=== PATIENT | female | born 1955 | race Caucasian/White ===

== ENCOUNTER 2016-09-07 13:23 | Outpatient (CLI) | payer BC | END 2016-09-07 13:24 | disposition home or self-care (01) | LOC: LABLEX 13:23 | PROVIDERS: ATTEND Family Medicine | DX: N39.0 Urinary tract infection, site not specified (principal) | CPT/HCPCS: 87086 ==

== ENCOUNTER 2017-05-09 10:16 | Outpatient (CLI) | payer BC ==
[2017-05-09 16:16] LABS: #Basophils 0.1 thou/uL (0.0-0.2); #Eosinphils 0.1 thou/uL (0.0-0.7); #Lymphocytes 1.8 thou/uL (1.20-3.40); #Monocytes 0.7 thou/uL (0.11-0.59); #Neutrophils 5.3 thou/uL (1.40-6.50); %Basophils 1.6 % (0.0-1.0); %Eosinophils 1.7 % (0.0-10.0); %Lymphocytes 22.1 % (21.0-51.0); %Monocytes 8.2 % (0.0-10.0); %Neutrophils 66.4 % (42.0-75.0); Hemoglobin 14.4 g/dL (12.0-16.0); Mean Corpuscular HGB CONC 34.5 g/dL (32.0-36.0); Mean Corpuscular Hemoglobin 31.9 pg (27.0-31.0); Mean Corpuscular Volume 92.4 fl (81.0-99.0); Mean Platelet Volume 8.1 fL (7.4-10.4); Platelet Count 251 thou/uL (130-400); RBC Distribution Width 11.1 % (11.5-14.5); Red Blood Cell (RBC) Count 4.51 mill/uL (4.20-5.40); White Blood Cell (WBC) Count 7.9 thou/uL (4.8-10.8)
[2017-05-09 16:42] LABS: ALT (SGPT) 28 U/L (8-55); AST (SGOT) 23 U/L (5-34); Albumin 4.3 g/dL (3.4-4.8); Alkaline Phosphatase 59 U/L (40-150); Anion Gap 14 mmol/L (10-20); BUN (Urea Nitrogen) 10 mg/dL (9.8-20.1); Bilirubin, Total 1.5 mg/dL (0.2-1.2); Calc. Creatinine Clearance 0 mL/min (70-130); Calcium 9.6 mg/dL (7.8-10.44); Carbon Dioxide 26 mmol/L (23-31); Cardiac Risk 3.2 (Less than 4.5); Chloride 103 mmol/L (98-107); Cholesterol 232 mg/dl (< 200 Desired); Estimated GFR-MDRD 81; Globulin 2.6 g/dL (2.4-3.5); Glucose 88 mg/dL (80-115); HDL Cholesterol 73 mg/dL (>60 Neg Risk); LDL Cholesterol, Calculated 129 mg/dL; Potassium 4.7 mmol/L (3.5-5.1); Protein, Total 6.9 g/dL (6.0-8.3); Sodium 138 mmol/L (136-145); Triglycerides 148 mg/dL (Less than 150)
== END 2017-05-09 10:17 | disposition home or self-care (01) ==
LOC: LABLEX 10:16
PROVIDERS: ATTEND Nurse Practitioner
DX: E78.2 Mixed hyperlipidemia (principal)
CPT/HCPCS: 80053; 80061; 85025

== ENCOUNTER 2019-12-29 15:08 | Emergency (ER) | payer MEDICARE, BC ==
[2019-12-29] MEDS ORDERED: Ondansetron PF 4 MG/2 ML Vial ONE (15:36)
[2019-12-29] MEDS ORDERED: Fentanyl 100 MCG/2 ML VIAL ONE ×2 (15:36→16:35)
[2019-12-29 15:54] LABS: #Basophils 0.1 thou/uL (0.0-0.2); #Eosinphils 0.2 thou/uL (0.0-0.7); #Lymphocytes 3.2 thou/uL (1.20-3.40); #Neutrophils 14.3 thou/uL (1.40-6.50); %Basophils 0.7 % (0.0-1.0); %Eosinophils 0.8 % (0.0-10.0); %Lymphocytes 16.9 % (21.0-51.0); %Monocytes 5.4 % (0.0-10.0); %Neutrophils 76.2 % (42.0-75.0); Hemoglobin 12.8 g/dL (12.0-16.0); Mean Corpuscular HGB CONC 31.1 g/dL (32.0-36.0); Mean Corpuscular Hemoglobin 28.7 pg (27.0-31.0); Mean Corpuscular Volume 92.4 fL (78.0-98.0); Mean Platelet Volume 6.7 fL (7.4-10.4); Platelet Count 285 thou/uL (130-400); RBC Distribution Width 13.1 % (11.5-14.5); Red Blood Cell (RBC) Count 4.46 mill/uL (4.20-5.40); White Blood Cell (WBC) Count 18.8 thou/uL (4.8-10.8)
[2019-12-29] MEDS ORDERED: cefTRIAXone\\ROCEPHIN 2 GM VIAL ONE (15:57)
[2019-12-29] MEDS ORDERED: Sodium Chloride 0.9% 100 ML ONE (15:57)
[2019-12-29 16:10] LABS: ALT (SGPT) 9 U/L (8-55); AST (SGOT) 12 U/L (5-34); Albumin 4.5 g/dL (3.4-4.8); Alkaline Phosphatase 84 U/L (40-110); Anion Gap 15 mmol/L (10-20); BUN (Urea Nitrogen) 12 mg/dL (9.8-20.1); Bilirubin, Total 0.6 mg/dL (0.2-1.2); Calc. Creatinine Clearance 0 mL/min (70-130); Calcium 9.2 mg/dL (7.8-10.44); Carbon Dioxide 24 mmol/L (23-31); Chloride 103 mmol/L (98-107); Estimated GFR-MDRD 73; Globulin 2.9 g/dL (2.4-3.5); Glucose 118 mg/dL (80-115); Potassium 3.5 mmol/L (3.5-5.1); Protein, Total 7.4 g/dL (6.0-8.3); Sodium 138 mmol/L (136-145)
[2019-12-29] MEDS ORDERED: Ketorolac Tromethamine 30 MG/ML VIAL ONE (16:35)
[2019-12-29 17:26] LABS: Bilirubin Negative (Negative); Blood, Urine Small (Negative); Clarity Clear (Clear); Glucose, Urine (Dipstick) Negative (Negative); Leukocyte Negative (Negative); Nitrite Negative (Negative); Protein, Urine (Dipstick) Negative (Neg-Trace); Urobilinogen 0.2 mg/dL (Less than 2)
[2019-12-29 17:34] LABS: Bacteria/HPF 1+ HPF (None Seen); Broad Cast None Seen LPF (None Seen); Calcium Oxalate Crystals None Seen HPF (None Seen); Cellular Cast None Seen LPF (None Seen); Epithelial Cast None Seen LPF (None Seen); Fatty Cast None Seen LPF (None Seen); Mucous/LPF None Seen LPF (<2+); Other Casts None Seen LPF (None Seen); Oval Fat Bodies/HPF None Seen HPF (None Seen); RBC/HPF 0-3 HPF (0-3); Red Blood Cell Cast None Seen LPF (None Seen); Renal Epithelial None Seen HPF (None Seen); Sperm/HPF None Seen HPF (None Seen); Squamous Epithelial 0-3 HPF (0-3); Transitional Epithelial None Seen HPF (None Seen); Trichomonas/HPF None Seen HPF (None Seen); Triple Phosphate Crystal None Seen HPF (None Seen); Unclassified Crystals None Seen HPF (None Seen); WBC/HPF 0-3 HPF (0-3); Waxy Cast None Seen LPF (None Seen); White Blood Cell Cast None Seen LPF (None Seen); Yeast-Budding None Seen HPF (None Seen); Yeast-Hyphae None Seen HPF (None Seen)
--- NOTE | 2019-12-29 20:32 | RAD ---
LEFT KNEE FOUR VIEWS: Date: 12-29-2019 FINDINGS: A total knee arthroplasty is in place. There is a normal post-operative appearance with no sign of lo osening or infection. Some soft tissue swelling around the placement is to expected, given the somewh at recent surgery. IMPRESSION: No acute bony finding. POS: HOME
== END 2019-12-29 17:05 | disposition short-term general hospital (02) ==
LOC: BURERS 15:08
DX: T84.54XA Infection and inflammatory reaction due to internal left knee prosthesis, initial encounter (principal); Z79.899 Other long term (current) drug therapy; Z96.651 Presence of right artificial knee joint
CPT/HCPCS: 80053; 81003; 81015; 83605; 85025; 87040; 96365; 96367; 96375; 96376; J0696; J1885; J2405; J3010; J3370; J3490

== ENCOUNTER 2021-08-17 19:35 | Emergency (ER) | payer MEDICARE, BC ==
[2021-08-18 15:20] LABS: SARS-CoV-2 PCR by NAA DETECTED (NotDetected)
== END 2021-08-17 22:23 | disposition home or self-care (01) ==
LOC: BURERS 19:35
DX: U07.1 COVID-19 (principal)
CPT/HCPCS: 71046; 87804 ×2; 99283; U0003; U0005

== ENCOUNTER 2021-08-26 14:40 | Emergency (ER) | payer MEDICARE, BC | END 2021-08-26 15:35 | disposition home or self-care (01) | LOC: BURERS 14:40 | DX: S80.02XA Contusion of left knee, initial encounter (principal); W01.0XXA Fall on same level from slipping, tripping and stumbling without subsequent striking against object, initial encounter; Z86.16 Personal history of COVID-19 ==

== ENCOUNTER 2021-08-31 15:41 | Emergency (ER) | payer MEDICARE, BC | END 2021-08-31 16:58 | disposition home or self-care (01) | LOC: BURERS 15:41 | DX: S80.02XA Contusion of left knee, initial encounter (principal); Z86.16 Personal history of COVID-19; W19.XXXA Unspecified fall, initial encounter ==

== ENCOUNTER 2024-02-08 06:41 | Emergency (ER) | payer MEDICARE, BC, OTHER ==
[2024-02-08] MEDS ORDERED: HYDROcodone/Acetaminophen 5/325 mg Tablet ONE (07:47)
[2024-02-08] MEDS ORDERED: Acetaminophen 500 MG TAB ONE (07:55)
== END 2024-02-08 08:47 | disposition home or self-care (01) ==
LOC: BURERS 06:41
DX: S02.2XXA Fracture of nasal bones, initial encounter for closed fracture (principal); I10 Essential (primary) hypertension; W01.10XA Fall on same level from slipping, tripping and stumbling with subsequent striking against unspecified object, initial encounter
CPT/HCPCS: 70450; 70486; 72125

== ENCOUNTER 2024-02-09 11:06 | Emergency (ER) | payer MEDICARE, BC, OTHER ==
[~2024-02-09 11:06] MED LIST: Iopamidol 370 76% 100 ML VIAL ONE
[2024-02-09 11:42] LABS: INR-International Normal Ratio 0.9; Prothrombin Time 12.4 sec (12.0-14.7)
[2024-02-09 11:51] LABS: ALT (SGPT) 15 U/L (8-55); AST (SGOT) 12 U/L (5-34); Alkaline Phosphatase 64 U/L (40-110); Anion Gap 14 mmol/L (10-20); BUN (Urea Nitrogen) 27 mg/dL (9.8-20.1); Bilirubin, Total 0.5 mg/dL (0.2-1.2); Calc. Creatinine Clearance 0 mL/min (70-130); Carbon Dioxide 25 mmol/L (23-31); Chloride 102 mmol/L (98-107); Estimated GFR 86; Globulin 2.4 g/dL (2.4-3.5); Glucose 130 mg/dL (80-115); Potassium 3.8 mmol/L (3.5-5.1); Protein, Total 6.4 g/dL (5.8-8.1); Sodium 137 mmol/L (136-145)
[2024-02-09 11:53] LABS: Band 1 % (5-11); Eosinophils 1 % (0-10); Hematocrit 34.6 % (36.0-47.0); Hemoglobin 11.3 g/dL (12.0-16.0); Lymphocytes 34 % (21-51); MDiff Complete? YES; Mean Corpuscular HGB CONC 32.7 g/dL (32.0-36.0); Mean Corpuscular Hemoglobin 28.8 pg (27.0-31.0); Mean Corpuscular Volume 88.1 fl (78.0-98.0); Mean Platelet Volume 7.8 fL (7.4-10.4); Monocytes 4 % (0-10); Neutrophil 59 % (42-75); Platelet Count 227 10x3/uL (130-400); RBC Distribution Width 12.3 % (11.5-14.5); Red Blood Cell (RBC) Count 3.92 mill/uL (4.20-5.40); White Blood Cell (WBC) Count 32.1 10x3/uL (4.8-10.8)
[2024-02-09] MEDS ORDERED: Tranexamic Acid 1,000 MG/10 ML VIAL ONE (11:55)
[2024-02-09] MEDS ORDERED: Metoclopramide HCl 10 MG (2 mL) VIAL ONE (13:05)
[2024-02-09 13:10] LABS: Bilirubin Negative (Negative); Blood, Urine Small (Negative); Clarity Clear (Clear); Glucose, Urine (Dipstick) Negative (Negative); Ketone, Urine Negative (Negative); Leukocyte Negative (Negative); Nitrite Negative (Negative); Protein, Urine (Dipstick) Negative (Neg-Trace); Specific Gravity, Urine 1.015 (1.005-1.030); Urobilinogen 0.2 mg/dL (Less than 2)
[2024-02-09 13:15] LABS: Bacteria/HPF 1+ HPF (None Seen); CAUTI Indications for Culture Dysuria,urgency,freq; RBC/HPF 0-3 HPF (0-3); Squamous Epithelial 0-3 HPF (0-3); WBC/HPF None Seen HPF (0-3)
[2024-02-09 13:16] LABS: Urine Culture Reflex No No
== END 2024-02-09 14:08 | disposition home or self-care (01) ==
LOC: BURERS 11:06
DX: R04.0 Epistaxis (principal); J90 Pleural effusion, not elsewhere classified; S22.39XD Fracture of one rib, unspecified side, subsequent encounter for fracture with routine healing; I10 Essential (primary) hypertension; Z79.899 Other long term (current) drug therapy; X58.XXXD Exposure to other specified factors, subsequent encounter
CPT/HCPCS: 71250; 74177; 80053; 81001; 85025; 85610; 96374; 99284; J2765; 82274; Q9967